=== PATIENT | male | born 1960 | race Caucasian/White ===

== ENCOUNTER 2024-09-19 14:18 | Emergency (ER) | payer BC, SELFPAY ==
[2024-09-19] VITALS (7 sets, daily range): BP systolic 116–155; BP diastolic 78–92; BMI 27.0
[2024-09-19 14:56] LABS: % Basophils 0.9 % (0-2); % Eosinophils 1.2 % (0-6); % Immature Granulocytes 0.2 % (0-0.5); % Lymphocytes 49.6 % (20.5-51.1); % Monocytes 8.3 % (1.7-9.3); % Neutrophils 39.8 % (42.2-75.2); Absolute Basophils 0.1 10^3/uL (0-0.2); Absolute Eosinophils 0.1 10^3/uL (0-0.7); Absolute Lymphocytes 2.8 10^3/uL (1.2-3.4); Absolute Monocytes 0.5 10^3/uL (0.1-0.6); Absolute Neutrophils 2.3 10^3/uL (1.4-6.5); Hematocrit 42.2 % (39.0-52.0); Hemoglobin 15.3 g/dL (13.0-18.0); Mean Corp Hgb Conc. 36.3 g/dL (33.0-37.0); Mean Corpuscular Hgb 32.2 pg (27.0-31.0); Mean Corpuscular Volume 88.8 fL (80.0-94.0); Mean Platelet Volume 8.5 fL (7.4-10.4); Nucleated Red Blood Cells % 0 % (-); Platelet Count 295 10^3/uL (130-400); Red Blood Cell Count 4.75 10^6/uL (4.70-6.10); White Blood Cell Count 5.7 10^3/uL (4.8-10.8)
[2024-09-19 15:11] LABS: ALT (SGPT) 59 U/L (0-50); AST (SGOT) 56 U/L (17-59); Albumin 4.3 g/dl (3.5-5.0); Alkaline Phosphatase 109 U/L (38-126); Blood Urea Nitrogen 8 mg/dl (9-20); Calcium 9.6 mg/dl (8.4-10.2); Carbon Dioxide 29 mmol/L (22-30); Chloride 104 mmol/L (98-107); Glucose 95 mg/dl (70-99); Potassium 4.1 mmol/L (3.5-5.1); Sodium 141 mmol/L (135-145); Total Bilirubin 0.7 mg/dl (0.2-1.3); Total Protein 6.6 g/dl (6.3-8.2); eGFR > 60.00
[2024-09-19 15:20] LABS: Troponin I < 0.012 ng/ml
--- NOTE | 2024-09-19 18:15 | ED.GENMED ---
History of Present Illness
General
Chief Complaint: Chest Pain
Source: patient
Exam Limitations: none
Time Seen by Provider: 09/19/24 16:24
Nursing documentation reviewed up to this point in time: agreed with
History of Present Illness
History of Present Illness:
63 y/o M with h/o HTN, smoking, alcohol abuse
was sober until about 3 weeks ago
has been having some issues with his tongue for a few months, thrush treatment; but ent wants to biopsy it. he also has been having some intermittent ches tpain, worse with breathing
went to PCP who ordered CT, doesn'tk now what kind, thinks of his lungs
it showed maybe a pulmonary nodule but then also what sounds like coronary calcifications, but i am guessing because pt doesn't really know
pt says today around 11 am his chestp ain got worse and it worried him
he doesn't have outpatient cards appt until january
he last had alcohol last night
nothing today
denies withdrawal sypmtoms
no rectn travel
has chroinc wound on L lower extremity that is just healing now
this looks better than usual
Past History
Past History
ED Past Medical History: HTN
ED Past Surgical History: Orthopedic (R lower leg surgery and R hip surgery)
Social History
Tobacco: Smoker
Alcohol: Daily (1/2 gallon daily of Vodka)
Personal:
Living: with family
Review of Systems
Review of Systems
Allergies reviewed?: Yes
All Other Systems: Not applicable
Phy Exam
Physical Exam
Physical Exam:
GENERAL: Alert , in no apparent distress
EYE: pupils equal and reactive
NECK: Supple
ENT: o/p clr, mmm.
thick white plaque on tongue with central smooth area;
CARDIAC: Regular rate and rhythm .
LUNGS: smoker's cough, end exp wheezing, no tachypnea;
ABDOMEN: Soft, without focal tenderness, no r/g, no cvat, normal bowel sounds
NEUROLOGICAL: Alert and oriented, no focal neuro deficits
SKIN: Warm and dry, skin intact.
MUSCULOSKELETAL: No edema, well perfused. neg altaf's sign
PSYCH: Normal and appropriate interaction.
Course
Orders/Labs/Results
Orders:
Orders
09/19/24 14:19
Electrocardiogram (*1) Urgent
Reason for Study: Chest Pain
EKG- Treatment ONCE
09/19/24 14:45
Complete Blood Count/With Diff Urgent
Comprehensive Metabolic Panel Urgent
Lipase Urgent
Comment: ADD ON
Troponin I Urgent
09/19/24 17:40
Add On- LAB Urgent
Tests Added?: lipase
CT Chest PE Study Urgent
Comment:
Reason For Exam: chest pain, smoker
09/19/24 17:47
Troponin I Urgent
Abnormal Lab Results
09/19/24
14:45
MCH 32.2 H pg
(27.0-31.0)
Neutrophils % 39.8 L %
(42.2-75.2)
BUN 8 L mg/dl
(9-20)
ALT 59 H U/L
(0-50)
09/19/24 14:45
09/19/24 14:45
Vital Signs
Initial and Last Documented VS:
Initial Vital Signs
Temp Pulse Resp BP Pulse Ox
36.8 C 78 16 155/84 98
09/19/24 14:26 09/19/24 14:26 09/19/24 14:26 09/19/24 14:26 09/19/24 14:26
Last Documented Vital Signs
Temp Pulse Resp BP Pulse Ox
36.6 C 74 14 116/83 96
09/19/24 17:37 09/19/24 17:37 09/19/24 17:37 09/19/24 17:37 09/19/24 17:37
MDM/Problems Addressed
Differential Diagnosis Includes:
PE, acs, copd, anixety, pancreatiis
MDM/Problems Addressed:
63 y/o M
admits to drinking daily the past few weeks after being sober
here with L chest pain, sounds like it has been ongoin for weeks
has had outpatient CT but doesnt have access to it
says today the cp got worse at 11 am
he has pleuritic component
chronic cough, no fever, no hemoptysis
does smell like alcohol on breath but clinically sober, ambulatory
vitals stable
intiial trop neg
ekg RBBB
2nd trop and PE study ordered
likely d/c home
ED Attending Note
-
Portions of this chart may have been created with voice recognition software.� Occasional wrong word or��sound alike� substitutions may have occurred due to the inherent limitations of voice recognition software.
Discharge Plan
Departure
Discharge Problem:
Chest pain
Instructions: Chest Pain DCA Follow Up
Prescriptions:
No Action
lamotrigine [Lamictal] 200 MG tablet
200 mg PO DAILY
Referrals:
Lola Kumar, DO [Family Provider] - Follow up in 2-3 days
Activity Restrictions/Additional Instructions:
WE ARE NOT SURE THE CAUSE OFYOUR CHES TPAIN
FOLLOW UP WITH CARDIOLOGY AN OUTPATIENT
TRY TO CUT BACK ALCOHOL AND SMOKING
RETURN FOR ANY CONCERNS.
Interventions
Interventions:
*Risk Screen - Suicide Last Done: 09/19/24 14:26
*General Assessment Last Done: 09/19/24 17:37
*Neglect/Abuse Screening Last Done: 09/19/24 14:26
*ED- Fall Risk Assessment Last Done: 09/19/24 17:37
*ED COVID-19 Vaccine History Last Done: 09/19/24 17:37
ED- Cardiac Assessment Last Done: 09/19/24 17:37
Discharge Date and Time
Print Language: [id number]
[2024-09-19 18:20] LABS: Troponin I < 0.012 ng/ml
[2024-09-19 18:27] LABS: Lipase 61 U/L (23-300)
== END 2024-09-19 20:54 | disposition home or self-care (01) ==
LOC: EMR 14:18
PROVIDERS: Emergency Medicine; Physician Assistant; EMERGENCY PHYSICIAN Student in an Organized Health Care Education/Training Program; FAMILY PHYSICIAN Family Medicine
DX: R07.89 Other chest pain (principal); R05.3 Chronic cough; F17.200 Nicotine dependence, unspecified, uncomplicated; I10 Essential (primary) hypertension
CPT/HCPCS: 99284; 71275; 80053; 83690; 84484; 85025; 93005; Q9967